=== PATIENT | female | born 1945 | race Caucasian/White ===

== ENCOUNTER 2016-05-09 19:45 | Emergency (ER) | payer MEDICARE, OTHER ==
[2016-05-09 20:03] LABS: BASOPHIL 0.9 % (0-2); EOSINOPHIL 0.8 % (0-7); HCT 39.6 % (37.0-47.0); HGB 13.3 g/dl (12.5-16.0); LYMPHOCYTE 45.7 % (15-48); MCH 31.5 pg (25.0-31.0); MCHC 33.6 g/dL (32.0-36.0); MCV 93.8 fL (78.0-100.0); MONOCYTE 9.7 % (0-12); MPV 10.9 fL (6.0-9.5); NEUTROPHIL 42.9 % (41-80); PLT 262 K/uL (150-400); RBC 4.22 M/uL (4.20-5.40); WBC 6.5 K/uL (4.0-10.5)
[2016-05-09 20:15] LABS: INR 0.96 (0.9-1.2); PROTHROMBIN TIME 12.4 SECONDS (11.7-14.0); PTT 23.5 SECONDS (23.2-31.4)
[2016-05-09 20:19] LABS: ALBUMIN 4.7 g/dL (3.4-4.8); BILIRUBIN - TOTAL 0.3 mg/dL (0.1-1.0); GLOBULIN (CALCULATION) 2.2 g/dL (2.2-4.2); MAGNESIUM 2.26 mg/dL (1.40-2.10); POTASSIUM 3.7 mmol/L (3.5-5.1); TOTAL PROTEIN 6.9 g/dL (6.4-8.3)
[2016-05-09 20:22] LABS: CKMB 1.14 ng/mL (0.97-4.94); MYOGLOBIN 22 ng/mL (26-65); PRO-BNP 69 pg/mL (0-125); TROPONIN T < 0.010 ng/mL
== END 2016-05-09 22:12 | disposition home or self-care (01) ==
LOC: FER 19:45
PROVIDERS: Emergency Medicine
DX: R07.9 Chest pain, unspecified (principal); E78.5 Hyperlipidemia, unspecified; Z79.899 Other long term (current) drug therapy
CPT/HCPCS: 36415; 71010; 80053; 82550; 82553; 83735; 83874; 83880; 84484; 85025; 85610; 85730; 93005